=== PATIENT | female | born 1955 | race Caucasian/White ===

== ENCOUNTER 2024-08-10 07:55 | Inpatient (IN) ==
--- NOTE | 2024-07-01 14:04 | PAT Medication Instructions ---
Medication Instructions Date of Service July 01, 2024 Home Medications Medication Instructions Recorded CPAP Supplies #1 ea 05/01/19 CPAP Machine #1 ea 05/05/19 CPAP Supplies #1 ea 05/05/19 compression stockings #3 ea 07/03/19 Medication List: multivitamin with iron 2 tab PO QAM [id number] [Macular Health Formula] 1 dose PO QAM naltrexone 8 mg-bupropion 90 mg tablet,extended release (Contrave) 1 tab PO QAM acetaminophen 500 mg tablet (Tylenol Extra Strength) 1,000 mg PO QAM ascorbic acid (vitamin C) 100 mg tablet (Vitamin C) 0 mg PO QAM cholecalciferol (vitamin D3) 50 mcg (2,000 unit) capsule 2,000 units PO QAM mirabegron 50 mg tablet,extended release 24 hr (Myrbetriq) 50 mg PO QAM omeprazole 20 mg capsule,delayed release 20 mg PO QAM solifenacin 10 mg tablet (Vesicare) 10 mg PO QAM MEDICATION INSTRUCTIONS: STOP taking 2 weeks before surgery [id number] [Macular Health Formula] 1 dose PO QAM DO NOT take the morning of surgery ascorbic acid (vitamin C) 100 mg tablet (Vitamin C) 0 mg PO QAM multivitamin with iron 2 tab PO QAM cholecalciferol (vitamin D3) 50 mcg (2,000 unit) capsule 2,000 units PO QAM mirabegron 50 mg tablet,extended release 24 hr (Myrbetriq) 50 mg PO QAM solifenacin 10 mg tablet (Vesicare) 10 mg PO QAM naltrexone 8 mg-bupropion 90 mg tablet,extended release (Contrave) 1 tab PO QAM Take morning of surgery With a small sip of water, OTHERWISE NOTHING TO EAT OR DRINK AFTER MIDNIGHT: omeprazole 20 mg capsule,delayed release 20 mg PO QAM acetaminophen 500 mg tablet (Tylenol Extra Strength) 1,000 mg PO QAM Other Notes If you have any questions please call us at [phone] or [phone] or [phone] or [phone]
--- NOTE | 2024-07-13 11:28 | Anesthesiology Consultation ---
Date of Service July 13, 2024 Assessment & Plan (1) Encounter for pre-operative examination: Plan - awaiting surgeon ordered medical clearance, CIRO 07/30. - Case discussed in detail with Dr. Esteves who advised echocardiogram does not need updated prior to surgery from anesthesia standpoint, will await upcoming PCP clearance. Chart Review Chart Review: Pending: Refer to Additional Notes / Consult section and Patient seen in Pre Admission Testing Teaching & Discussion Pre-Anesthesia Teaching/Discussion Notes: Instructed NPO after midnight before surgery, except medications with 15 cc of water. Medication instructions provided according to the PAT guidelines. History Surgery Operation Date: 08/10/24 07:45 Proposed Procedures p L3-L4, L4-L5 Decompression and Fusion, with Spinal Cord Monitoring - Morro Don, Height/Weight Height: 5 ft 4 in Weight: 138.7 kg Allergies Allergy/AdvReac Type Severity Reaction Status Date / Time latex Allergy Unknown ITCHING Verified 06/30/24 13:34 angie Allergy Unknown Swelling Verified 06/30/24 13:34 of Lip/Tongue/Throat NSAIDS (Non-Steroidal AdvReac Unknown POST Verified 06/30/24 13:34 Anti-Inflamma GASTRIC BYPASS RESTRICTION metal Allergy Unknown see pt Uncoded 06/30/24 13:34 notes below Medications Home Medications Medication Instructions Recorded Confirmed Last Taken CPAP Supplies #1 05/01/19 01/27/24 Unknown CPAP Machine #1 05/05/19 01/27/24 Unknown CPAP Supplies #1 05/05/19 01/27/24 Unknown compression stockings #3 07/03/19 01/27/24 Unknown multivitamin with iron 2 tab PO QAM 08/02/20 06/30/24 Unknown [id number] 1 dose PO QAM 12/27/23 06/30/24 Unknown [Macular Health Formula] naltrexone 8 mg-bupropion 90 mg 1 tab PO QAM 01/27/24 06/30/24 Unknown tablet,extended release (Contrave) acetaminophen 500 mg tablet 1,000 mg PO QAM 06/30/24 06/30/24 Unknown (Tylenol Extra Strength) ascorbic acid (vitamin C) 100 mg 0 mg PO QAM 06/30/24 06/30/24 Unknown tablet (Vitamin C) cholecalciferol (vitamin D3) 50 2,000 units PO QAM 06/30/24 06/30/24 Unknown mcg (2,000 unit) capsule mirabegron 50 mg tablet,extended 50 mg PO QAM 06/30/24 06/30/24 Unknown release 24 hr (Myrbetriq) omeprazole 20 mg capsule,delayed 20 mg PO QAM 06/30/24 06/30/24 Unknown release solifenacin 10 mg tablet (Vesicare) 10 mg PO QAM 06/30/24 06/30/24 Unknown Past Medical History Medical History (Updated 07/13/24 @ 12:47 by Judith Mehta PA-C) Aortic stenosis hx per [place] PCP 2021 records, no aortic stenosis on 03/2022 echo Arthritis Back problem Dysphagia on occ. GERD (gastroesophageal reflux disease) controlled, stable per pt History of colonic polyps History of COVID-19 unknown date/pt reports yrs ago. History of kidney stones History of malignant neoplasm of skin removed and no problems since. Hyperlipidemia denies Left knee DJD Mass of left lower leg pt not sure /nothing current Overactive bladder Paraesophageal hernia surgeon consult in [place]/no planned sx intervention. Right knee DJD Sleep apnea CPAP=compliant SOB (shortness of breath) on exertion with increased exertion, denies shortness of breath walking up one flight of stairs Stress incontinence Varicose veins of both lower extremities stockings recommended/non compliant. Patient denies h/o stroke, seizures, heart attack, heart failure, DM, HTN, blood clots/DVTs or blood transfusions. Exercise / Class Metabolic Activity II 4-5 Yardwork/Stairs/Walk up hill (denies chest discomfort or shortness of breath with one flight of stairs) Past Family History Family History (Updated 07/13/24 @ 11:33 by Judith Mehta PA-C) Father Lung cancer Cancer Heart problem Diabetes Mother Hypertension COPD (chronic obstructive pulmonary disease) Unknown Overweight Uncle Stroke Brother Congestive heart failure Past Surgical History Surgical History (Updated 07/13/24 @ 11:34 by Judith Mehta PA-C) History of abdominal surgery panniculectomy History of carpal tunnel surgery of left wrist History of carpal tunnel surgery of right wrist History of colonoscopy History of esophagogastroduodenoscopy (EGD) with stretching. History of gastric bypass History of hernia repair 3 hernias found and repaired. Following hernia surgery had choking with lying down, couldn't sit up due to weak abdominal muscles and required rehab stay. History of surgery right hand thumb tendon repair years ago by Dr. Castro Past Anesthesia History No Hx of Anesthesia Complications and Other (mother with post-op confusion) History of PONV No Hx of PONV and No Hx of Motion Sickness Social History Smoking Status: Never smoker Do You Dip or Chew Tobacco: No Hx Alcohol Use: Yes alcohol intake frequency: holidays/special occasions only substance use type: does not use Review of Systems Patient denies chest pain, fever, chills, cough, wheezing, or palpitations. Physical Exam Vital Signs Vitals BP 128/80 P 82 TEMP 97.6 SP02 97% on RA RESP 18 Physical Patient resting comfortably in chair in no acute distress, alert and oriented, responding appropriately throughout visit Full cervical extension range of motion without pain TMD 3.5 finger breadths Mallampati Score 2 Dentition: intact, denies chipped or loose teeth, caps/crowns, implants or bridges Lungs: normal respiratory effort. Good air movement, clear throughout to auscultation, no adventitious breath sounds Cardiac: regular rate and rhythm, 2/6 systolic murmur, no gallops or rubs Carotid arteries: negative bruit bilat Lab Results Anesthesia Preop Results Results Anesthesia Widget: WBC 5.94 K/ul (4.8-10.8) 07/13/24 Hgb 13.3 g/dl (12.0-16.0) 07/13/24 Hct 40.8 % (37.0-47.0) 07/13/24 Plt 287 K/uL (130-400) 07/13/24 Na 139 mmol/L (136-145) 07/13/24 K 4.0 mmol/L (3.5-5.1) 07/13/24 Cl 107 mmol/L (98-107) 07/13/24 CO2 25 mmol/L (21-32) 07/13/24 BUN 21 mg/dl (6-23) 07/13/24 Creat 0.58 mg/dl (0.6-1.2) L 07/13/24 Glucose Level 80 mg/dl (70-99(Fasting)) 07/13/24 PT 10.0 Seconds (9.0-12.0) 07/13/24 PTT 28 Seconds (21-31) 07/13/24 INR 0.9 (0.9-1.1) 07/13/24 Urine Color Yellow 07/13/24 Urine Appearance Clear (Clear) 07/13/24 Urine pH 5.5 (4.5-7.5) 07/13/24 Urine Specific [place] 1.012 (1.000-1.030) 07/13/24 Urine Protein Negative (Negative) 07/13/24 Urine Glucose (UA) Negative (Negative) 07/13/24 Urine Ketones Negative (Negative) 07/13/24 Urine Blood Negative (Negative) 07/13/24 Urine Nitrite Negative (Negative) 07/13/24 Urine Bilirubin Negative (Negative) 07/13/24 Urine Urobilinogen Negative (Negative) 07/13/24 Urine Leukocyte Esterase Negative (Negative) 07/13/24 Blood Type O Positive 07/13/24 Antibody Screen NEGATIVE 07/13/24 Testing Electrocardiogram Date: 07/13/24 NSR, rate 73 bpm RBBB Chest X-Ray Date: 07/13/24 No acute cardiopulmonary findings. Echocardiogram Date: 03/27/22 EF 60-65% No LV regional wall motion abnormalities Moderate cLVH Sclerotic aortic valve without significant stenosis Grade I diastolic dysfunction
[2024-08-10] MEDS ORDERED: ATROPINE SULFATE 0.1 MG/ML 10ML SYR IV PRN (08:24)
[2024-08-10] MEDS ORDERED: PROMETHAZINE HCL 6.25 MG in SODIUM CHLORIDE 0.9% 50 ML IV PRN (08:24)
[2024-08-10] MEDS ORDERED: ONDANSETRON INJ 2 MG/ML 2 ML VIAL IV PRN ×2 (08:24→14:58)
[2024-08-10] MEDS: GABAPENTIN 300 MG CAP PO SCH (08:41)
[2024-08-10] MEDS: ACETAMINOPHEN 500 MG TAB PO SCH (08:41)
[2024-08-10] MEDS: LR 60ML/HR IV SCH (08:41)
[2024-08-10] MEDS: LR 15ML/HR IV SCH (08:42)
--- NOTE | 2024-08-10 08:46 | History & Physical Bridge Note ---
Date of Service August 10, 2024 History & Physical Bridge Note I have examined the patient, reviewed the History & Physical and in the interval since the performance of the History & Physical I have noted the following changes of clinical significance: no changes noted
--- NOTE | 2024-08-10 08:47 | History & Physical Report ---
Date of Service August 10, 2024 Assessment & Plan (1) Neurogenic claudication due to lumbar spinal stenosis: Plan: Decompression and fusion L3-L4 L4-L5 History of Present Illness Chief Complaint: Back and bilateral leg pain Primary Care Provider: Hernandez Collazo DO This is a 69-year-old female presents with chronic persistent back and bilateral leg pain after failing course of nonoperative care is here for surgical invention. Allergies Allergy/AdvReac Type Severity Reaction Status Date / Time latex Allergy Unknown ITCHING Verified 08/10/24 08:26 angie Allergy Unknown Swelling Verified 08/10/24 08:26 of Lip/Tongue/Throat NSAIDS (Non-Steroidal AdvReac Unknown POST Verified 08/10/24 08:26 Anti-Inflamma GASTRIC BYPASS RESTRICTION metal Allergy Mild see pt Uncoded 08/10/24 08:26 notes below Home Medications Medication Instructions Recorded Confirmed Type CPAP Supplies #1 05/01/19 08/10/24 Rx CPAP Machine #1 ea 05/05/19 08/10/24 Rx CPAP Supplies #1 ea 05/05/19 08/10/24 Rx compression stockings #3 ea 07/03/19 08/10/24 Rx multivitamin with iron 2 tab PO QAM 08/02/20 08/10/24 History [id number] 1 dose PO QAM 12/27/23 08/10/24 History [Macular Health Formula] naltrexone 8 mg-bupropion 90 mg 1 tab PO QAM 01/27/24 08/10/24 History tablet,extended release (Contrave) acetaminophen 500 mg tablet 1,000 mg PO QAM 06/30/24 08/10/24 History (Tylenol Extra Strength) ascorbic acid (vitamin C) 100 mg 0 mg PO QAM 06/30/24 08/10/24 History tablet (Vitamin C) cholecalciferol (vitamin D3) 50 2,000 units PO QAM 06/30/24 08/10/24 History mcg (2,000 unit) capsule mirabegron 50 mg tablet,extended 50 mg PO QAM 06/30/24 08/10/24 History release 24 hr (Myrbetriq) omeprazole 20 mg capsule,delayed 20 mg PO QAM 06/30/24 08/10/24 History release solifenacin 10 mg tablet (Vesicare) 10 mg PO QAM 06/30/24 08/10/24 History bupropion HCl 150 mg tablet,12 hr 150 mg PO QAM #30 ea 07/20/24 08/10/24 Rx sustained-release naltrexone 50 mg tablet 25 mg (1/2 x 50 mg) PO DAILY #30 07/20/24 08/10/24 Rx tabs Past Med/Surg History Problem List (Updated 08/10/24 @ 08:47 by Morro Don, DO) Neurogenic claudication due to lumbar spinal stenosis Encounter for pre-operative examination Vitamin D deficiency Right knee DJD Left knee DJD Mixed incontinence urge and stress Nausea Runny nose Headache Right foot pain Dysphagia Varicose veins of both legs with edema Breast pain in female Body mass index (BMI) of 50.0 to 59.9 in adult (Chronic) CTS (carpal tunnel syndrome) (Chronic) Hyperlipidemia (Chronic) Incontinence (Chronic) Morbid obesity (Chronic) Need for immunization against influenza (Chronic) RITA on CPAP (Chronic) Screening mammogram, encounter for (Chronic) Shortness of breath on exertion (Chronic) Status post gastric bypass for obesity (Chronic) Stress incontinence in female (Chronic) Urinary urgency (Chronic) Vitamin B12 deficiency (Chronic) Medical History Left knee DJD Right knee DJD Aortic stenosis History of COVID-19 Back problem Arthritis History of colonic polyps History of malignant neoplasm of skin History of kidney stones Mass of left lower leg Varicose veins of both lower extremities Hyperlipidemia Stress incontinence Overactive bladder Dysphagia Paraesophageal hernia SOB (shortness of breath) on exertion GERD (gastroesophageal reflux disease) Sleep apnea Surgical History History of surgery History of abdominal surgery History of esophagogastroduodenoscopy (EGD) History of colonoscopy History of carpal tunnel surgery of right wrist History of carpal tunnel surgery of left wrist History of gastric bypass History of hernia repair Family History (Updated 07/13/24 @ 11:33 by Judith Mehta PA-C) Father Lung cancer Cancer Heart problem Diabetes Mother Hypertension COPD (chronic obstructive pulmonary disease) Unknown Overweight Uncle Stroke Brother Congestive heart failure Social History Smoking Status: Never smoker Do You Dip or Chew Tobacco: No; Hx Alcohol Use: Yes Preferred Language: Lao Communication Ability: Effective Database Programmer Required: No Beliefs That Will Affect Care: None marital status: Single Current Living Situation: Alone current occupational status: retired Feels Safe at Home: Yes Assistive Devices: Cane, CPAP and Glasses Physical Exam Physical Exam: Patient is alert and oriented Heart regular rhythm Lungs clear Results & Data Results & Data Vital Signs (Past 12 Hours) Vital Signs Temp Pulse Resp BP Pulse Ox O2 Del Method 08/10/24 08:33 36.8 C 83 14 135/80 96 Room Air
[2024-08-10] MEDS ORDERED: LIDOCAINE 2% 2 ML VIAL/AMP(20MG/ML) INFIL ONE (09:06)
[2024-08-10] MEDS ORDERED: ONDANSETRON INJ 2 MG/ML 2 ML VIAL ONE (09:06)
[2024-08-10] MEDS ORDERED: fentaNYL citrate PF 100 MCG/2 ML VIAL ONE (09:06)
[2024-08-10] MEDS ORDERED: PROPOFOL IV EMULSION 10 MG/ML 20 ML VIAL IV ONE (09:06)
[2024-08-10] MEDS ORDERED: MIDAZOLAM HCL 1 MG/ML 2ML VIAL ONE (09:06)
[2024-08-10] MEDS ORDERED: DEXAMETHASONE SOD INJ 4 MG/ML VIAL ONE (09:06)
[2024-08-10] MEDS ORDERED: HYDROmorphone INJ 2 MG/ML SYR/VIAL ONE (09:07)
[2024-08-10] MEDS: ceFAZolin 3000MG 3,000 MG/72.5 ML BAG IV SCH (09:42)
[2024-08-10] MEDS: BUPIVACAINE/EPINEPHRINE 0.25% 1:200,000 30 ML VIAL ONE (09:45)
[2024-08-10] MEDS ORDERED: ROCURONIUM BROMIDE 10 MG/ML 5 ML VIAL IV ONE (09:51)
[2024-08-10] MEDS ORDERED: ALBUMIN HUMAN 5% 12.5 GM/250 ML VIAL IV ONE (10:36)
[2024-08-10] MEDS ORDERED: diphenhydrAMINE 50 MG/ML VIAL ONE (11:13)
[2024-08-10] MEDS ORDERED: SUGAMMADEX SODIUM 200 MG/2 ML VIAL IV ONE (11:16)
[2024-08-10] MEDS ORDERED: GLYCOPYRROLATE 0.2 MG/ML VIAL ONE (11:28)
[2024-08-10] MEDS: SURGICEL ABSORB HEMOSTAT 2IN X 14IN TOP ONE (11:33)
[2024-08-10] MEDS: FLOSEAL HEMOSTATIC MATRIX 10ML TOP ONE (11:38)
[2024-08-10] MEDS: ceFAZolin 330 MG/ML 1 GM VIAL ONE (11:38)
--- NOTE | 2024-08-10 11:54 | Operative Report ---
Post Operative Report Pre & Post Diagnosis Operation Date: 08/10/24 09:05 Pre-Op Diagnosis: Neurogenic claudication due to lumbar spinal stenosis Spondylolisthesis L4-L5 Morbid obesity Post-Op Diagnosis: Same I identified the patient and participated in the time-out.: Yes Procedure Operation Date: 08/10/24 09:05 Actual Procedures #1 lumbar decompression bilateral medial facetectomies and foraminotomies L2-L3, L3-L4 and L4-5. #2 posterior spinal fusion L3-L5. #3 placement posterior instrumentation L3-L5. #4 interbody fusion L3-L4 L4-L5 #5 placement of Spira 13 x 26 mm x 2 at L3-L4 and a 14 x 26 mm x 2 at L4-L5. #6 placement locally harvested morselized autograft posterior gutters. #7 placement infuse collagen sponge combined with Koros in the posterior lateral gutters and os design in the interbody space. #9 placement of versa wrap over the exposed dura. Surgeon Morro Don, DO Geriatric Nurse Practitioner Shellie Bland Estimated Blood Loss 1,050 Findings See Below The patient is 5 foot 4 weighing over 139 kg with a BMI in excess of 52. This combined with an EBL of greater than 1000 cc created significant technical difficulty with the positioning exposure and the procedure itself. This had at least 50% increased operative time. And recommending a modifier 22. Specimens None Indications This is a 69-year-old female presents publish diagnosis of failing course of nonoperative care is here for surgical invention. Description of Procedure Patient was met with identified informed consent obtained. Patient was then taken to the operative suite underwent intubation and placed in the prone position on the Stephen table atop the Munir frame. All bony promises well- padded eyes inspected to ensure no external pressure placed upon them. This point the lumbar spine was prepped and draped in normal sterile fashion. Sharp dissection with the assistance of Bovie cautery was formed down to and exposing the lamina transverse processes of L3-L4-L5. From caudal cephalad fashion complete laminectomy of L4 was performed including bilateral medial facetectomies and foraminotomies addressing severe spinal stenosis. This was followed by complete laminectomy of L3 again including bilateral medial facetectomies and foraminotomies addressing severe spinal stenosis and lastly partial laminectomy of L2 with bilateral medial facetectomies to address also articular disease. Pedicle screws then placed in L3-L4-L5 bilaterally with assistance of fluoroscopy and appropriate size evette placed. By way of transforaminal approach on the right a discectomy of L4-L5 was performed endplates guarded to subcortical and bone and a 14 x 26 mm Spira cage filled with os designed tapped into position. I then proceeded to the left transforaminal region at L4-L5. Again discectomy performed endplates guarded to subcortical bleeding bone and a second 14 x 26 mm spiral cage with Oxyzyme tapped in position. Then proceeded to L3-L4 and by way of a transforaminal approach on the left a discectomy performed endplates guarded to subcortical bleeding bone and a 13 x 26 mm spiral cage filled with os design tapped in position. Lastly I approached L3-L4 foramen on the right completed discectomy. Endplates guarded to subcortical mean bone and a again a 13 x 26 mm Spira cage filled with Oxyzyme tapped in position. The rods then compressed locked into final position bilaterally. The transverse processes of L3 L4-5 burred to subcortical bleeding bone. Infuse collagen sponge combined with Koros and local autograft placed in the posterior lateral gutters. Versa wrap placed over the exposed dura. 15 round ROSE MARIE drain inserted. The incision was then closed with 1 Vicryl the fascia 2-0 Vicryl subcutaneously and 4 Monocryl for final closure. Steri-Strips sterile dressing placed. Patient waken taken the PACU stable condition. Please note spinal cord monitoring was utilized at the procedure no changes noted. Lastly Shellie Bland was present out the entire procedure involved in patient positioning complex portion of the surgery and final closure. Im ordering 20 grams of Triple Pierson Collagen Powder (GoTable [id number]) to treat an incision wound that was caused by a spine procedure. The incision is approximately 2 cm(W) x 4 cm(L) into the joint (D) in size and is a full thickness wound. Triple Pierson collagen comes in 1 gram packets so 20 packets were ordered. Given the size of the wound, with light to moderate exudate I chose to order a 20 day supply. The patient will be provided instructions for proper application of the collagen wound kit. The patient will be asked to apply the collagen powder daily and then cover it with sterile dressings dispensed. Collagen was selected as I expect the collagen to attract monocytes and fibroblasts, act as a sacrificial substrate for MMPs, and ultimately proved a matrix for tissue and vessel growth. The collagen will act as a primary dressing in this scenario. It is medically necessary for proper healing of these wounds to improve bioavailability and contact with each wound surface, this is also to help prevent infection of wounds and promote healing ultimately leading to a better healing outcome and limit the risk of infection. I attest to the content of the Intraoperative Record and any orders documented therein. Any exceptions are noted below.
--- NOTE | 2024-08-10 12:00 | Fluoroscopy Report ---
FL lumbar spine 2-3V CLINICAL HISTORY: L3-L5 DECOMPRESSION AND FUSION COMPARISON STUDY: MRI 04/27/2024 FLUOROSCOPY TIME: 32.3 seconds FLUOROSCOPY IMAGES: 2 EXPOSURE DOSE: 61.6 mGy FINDINGS: Posterior interbody evette and screw fusion and discectomy noted at what is labeled the L3-L5 levels. Visualized hardware appears intact. No unexpected opaque foreign bodies identified. IMPRESSION: Fluoroscopic assistance as above. ACT 112: Negative or not required by law. Electronically signed by: Cedrick Martinez M.D. 08/10/2024 11:59 AM
[2024-08-10] MEDS: HYDROmorphone INJ 1 MG/ML SYRINGE IV PRN (12:15)
[2024-08-10] MEDS: HYDROmorphone INJ 1 MG/ML SYRINGE IV STA (13:00)
--- NOTE | 2024-08-10 14:10 | Anesthesiology Progress Note ---
Date of Service August 10, 2024 Anesthesia Post Procedure Vital Signs Vital Signs: Temp Pulse Pulse Resp BP Pulse Ox O2 Del Method 08/10/24 13:45 36.5 C 77 17 135/78 98 Room Air 08/10/24 13:35 36.5 C 70 15 142/74 H 97 Room Air 08/10/24 13:25 36.5 C 70 14 158/84 H 95 Room Air 08/10/24 13:10 36.5 C 63 10 L 174/85 H 100 Nasal Cannula 08/10/24 13:00 36.5 C 72 19 147/83 H 100 Oxymask 08/10/24 12:50 74 15 145/86 H 96 Oxymask 08/10/24 12:40 69 17 186/95 H 100 Oxymask 08/10/24 12:30 76 11 L 127/103 H 100 Oxymask 08/10/24 12:20 75 17 149/91 H 100 Oxymask 08/10/24 12:09 36.1 C L 84 18 143/74 H 98 Oxymask 08/10/24 08:33 36.8 C 83 14 135/80 96 Room Air O2 Flow Rate 08/10/24 13:45 2 08/10/24 13:35 2 08/10/24 13:25 2 08/10/24 13:10 2 08/10/24 13:00 2 08/10/24 12:50 3 08/10/24 12:40 3 08/10/24 12:30 3 08/10/24 12:20 4 08/10/24 12:09 6 08/10/24 08:33 Pain Intensity Back: Pain Intensity: 5 Transfer of Care Handoff Completed per policy Notes Mental Status: alert / awake / arousable Patient Amnestic to Procedure: Yes Nausea / Vomiting: adequately controlled Pain: adequately controlled Airway Patency, RR, SpO2: stable & adequate BP & HR: stable & adequate Hydration State: stable & adequate Anesthetic Complications: no major complications apparent
[2024-08-10] MEDS ORDERED: LORazepam 2 MG/1 ML VIAL IV PRN (14:58)
[2024-08-10] MEDS ORDERED: hydrOXYzine HCl 25 MG TAB PO PRN (14:58)
[2024-08-10] MEDS ORDERED: FAMOTIDINE 20 MG TAB PO PRN (14:58)
[2024-08-10] MEDS ORDERED: SOD PHOSPHATE/SOD BIPHOSPHATE ENEMA 132 ML BTL PR PRN (14:58)
[2024-08-10] MEDS ORDERED: NON-FORMULARY MEDICATION (Cpap Supplies misc) SCH ×2 (14:58)
[2024-08-10] MEDS ORDERED: METOCLOPRAMIDE HCL INJ 5 MG/ML 2 ML VIAL IV PRN (14:58)
[2024-08-10] MEDS ORDERED: DO NOT ADMINISTER PNEUMOCOCCAL VACCINE PRN (14:58)
[2024-08-10] MEDS ORDERED: PROMETHAZINE 12.5 MG/50.5 ML BAG IV PRN (14:58)
[2024-08-10] MEDS ORDERED: NALOXONE HCL 0.4 MG/1 ML VIAL/CARP IV PRN (14:58)
[2024-08-10] MEDS ORDERED: ALUMINUM/MAGNESIUM SUSP 30 ML UDC PO PRN (14:58)
[2024-08-10] MEDS ORDERED: traMADol HCL 50 MG TABLET PO PRN (14:58)
[2024-08-10] MEDS ORDERED: bisacodyL 10 MG SUPP PR PRN (14:58)
[2024-08-10] MEDS ORDERED: NON-FORMULARY MEDICATION (Cpap Machine misc) SCH (14:58)
[2024-08-10] MEDS ORDERED: ONDANSETRON 4 MG OD TAB PO PRN (14:58)
[2024-08-10] MEDS ORDERED: HYDROmorphone INJ 0.5 MG/0.5 ML SYR IV PRN (14:58)
[2024-08-10] MEDS ORDERED: ACETAMINOPHEN 1,000 MG/100 ML VIAL IV PRN (14:58)
[2024-08-10] MEDS ORDERED: diphenhydrAMINE Capsule 25 MG CAP PO PRN (14:58)
[2024-08-10] MEDS ORDERED: DO NOT ADMINISTER FLU VACCINE PRN (14:58)
[2024-08-10] MEDS: LORazepam 0.5 MG TAB PO PRN (15:35)
--- NOTE | 2024-08-10 16:58 | Communication Note ---
Date of Service: August 10, 2024 Attending addendum: The patient was seen and examined in medical floor she is status post L3-L4 and L4-L5 decompression and fusion on 08/10/2024 She has been feeling much better following the surgery and denies any significant pain On examination Lying in bed without any apparent distress Afebrile and hemodynamically stable Chestclear to auscultate bilaterally HeartS1-S2, regular Abdomenbenign Extremitiesno edema CNSalert, awake and oriented x 3. No focal sensory or motor deficit appreciated Her preop admission labs, EKG and imaging studies reviewed Status post lumbar back surgery and remains medically stable Will check her labs tomorrow Agree with assessment and plan as outlined above by Ángel Steven PA-C and take the full responsibility of the care Dr Jorge Tang
--- NOTE | 2024-08-10 17:38 | Hospitalist Consultation ---
Date of Consultation August 10, 2024 History of Present Illness Reason for Consultation: Post-Operative Medical Management Requesting Physician: Morro Don DO Attending Physician: Morro Don DO History of Present Illness Angelika Acosta is a 69y/o F with PMHx significant for Allergies Allergy/AdvReac Type Severity Reaction Status Date / Time latex Allergy Unknown ITCHING Verified 08/10/24 08:26 angie Allergy Unknown Swelling Verified 08/10/24 08:26 of Lip/Tongue/Throat NSAIDS (Non-Steroidal AdvReac Unknown POST Verified 08/10/24 08:26 Anti-Inflamma GASTRIC BYPASS RESTRICTION metal Allergy Mild see pt Uncoded 08/10/24 08:26 notes below Home Medications Medication Instructions Recorded Confirmed Type CPAP Supplies #1 ea 05/01/19 08/10/24 Rx CPAP Machine #1 ea 05/05/19 08/10/24 Rx CPAP Supplies #1 ea 05/05/19 08/10/24 Rx compression stockings #3 ea 07/03/19 08/10/24 Rx multivitamin with iron 2 tab PO QAM 08/02/20 08/10/24 History [id number] 1 dose PO QAM 12/27/23 08/10/24 History [Macular Health Formula] naltrexone 8 mg-bupropion 90 mg 1 tab PO QAM 01/27/24 08/10/24 History tablet,extended release (Contrave) acetaminophen 500 mg tablet 1,000 mg PO QAM 06/30/24 08/10/24 History (Tylenol Extra Strength) ascorbic acid (vitamin C) 100 mg 0 mg PO QAM 06/30/24 08/10/24 History tablet (Vitamin C) cholecalciferol (vitamin D3) 50 2,000 units PO QAM 06/30/24 08/10/24 History mcg (2,000 unit) capsule mirabegron 50 mg tablet,extended 50 mg PO QAM 06/30/24 08/10/24 History release 24 hr (Myrbetriq) omeprazole 20 mg capsule,delayed 20 mg PO QAM 06/30/24 08/10/24 History release solifenacin 10 mg tablet (Vesicare) 10 mg PO QAM 06/30/24 08/10/24 History bupropion HCl 150 mg tablet,12 hr 150 mg PO QAM #30 ea 07/20/24 08/10/24 Rx sustained-release naltrexone 50 mg tablet 25 mg (1/2 x 50 mg) PO DAILY #30 07/20/24 08/10/24 Rx tabs oxycodone 5 mg tablet 5 mg PO Q6H PRN pain #30 tabs 08/10/24 Rx tramadol 50 mg tablet 50 mg PO Q6H PRN pain, moderate 08/10/24 Rx #30 tabs Patient History Medical History Left knee DJD Right knee DJD Aortic stenosis History of COVID-19 Back problem Arthritis History of colonic polyps History of malignant neoplasm of skin History of kidney stones Mass of left lower leg Varicose veins of both lower extremities Hyperlipidemia Stress incontinence Overactive bladder Dysphagia Paraesophageal hernia SOB (shortness of breath) on exertion GERD (gastroesophageal reflux disease) Sleep apnea Surgical History History of surgery History of abdominal surgery History of esophagogastroduodenoscopy (EGD) History of colonoscopy History of carpal tunnel surgery of right wrist History of carpal tunnel surgery of left wrist History of gastric bypass History of hernia repair Family History (Updated 07/13/24 @ 11:33 by Judith Mehta PA-C) Father Lung cancer Cancer Heart problem Diabetes Mother Hypertension COPD (chronic obstructive pulmonary disease) Unknown Overweight Uncle Stroke Brother Congestive heart failure Social History Smoking Status: Never smoker Do You Dip or Chew Tobacco: No; Hx Alcohol Use: Yes Preferred Language: [place] Communication Ability: Effective Director Of Bands Required: No Beliefs That Will Affect Care: None marital status: Single Current Living Situation: Alone current occupational status: retired Feels Safe at Home: Yes Assistive Devices: Cane, CPAP and Glasses Results & Data Results & Data Vital Signs (Past 12 Hours) Vital Signs Temp Pulse Pulse Resp BP Pulse Ox O2 Del Method 08/10/24 16:49 36.7 C 98 H 18 144/77 H 99 Nasal Cannula 08/10/24 15:46 36.6 C 90 18 153/86 H 100 Nasal Cannula 08/10/24 15:17 36.8 C 82 18 167/90 H 99 Nasal Cannula 08/10/24 15:00 36.4 C L 85 16 146/79 H 98 Nasal Cannula 08/10/24 14:15 78 16 154/85 H 97 Room Air 08/10/24 13:45 36.5 C 77 17 135/78 98 Room Air 08/10/24 13:35 36.5 C 70 15 142/74 H 97 Room Air 08/10/24 13:25 36.5 C 70 14 158/84 H 95 Room Air 08/10/24 13:10 36.5 C 63 10 L 174/85 H 100 Nasal Cannula 08/10/24 13:00 36.5 C 72 19 147/83 H 100 Oxymask 08/10/24 12:50 74 15 145/86 H 96 Oxymask 08/10/24 12:40 69 17 186/95 H 100 Oxymask 08/10/24 12:30 76 11 L 127/103 H 100 Oxymask 08/10/24 12:20 75 17 149/91 H 100 Oxymask 08/10/24 12:09 36.1 C L 84 18 143/74 H 98 Oxymask 08/10/24 08:33 36.8 C 83 14 135/80 96 Room Air O2 Flow Rate 08/10/24 16:49 08/10/24 15:46 08/10/24 15:17 08/10/24 15:00 2 08/10/24 14:15 2 08/10/24 13:45 2 08/10/24 13:35 2 08/10/24 13:25 2 08/10/24 13:10 2 08/10/24 13:00 2 08/10/24 12:50 3 08/10/24 12:40 3 08/10/24 12:30 3 08/10/24 12:20 4 08/10/24 12:09 6 08/10/24 08:33
[2024-08-10] MEDS: ceFAZolin 2000MG 2,000 MG/15 ML SYR IV SCH (18:05)
[2024-08-10] MEDS: DOCUSATE SODIUM/SENNA 50/8.6MG TAB PO SCH (20:33)
[2024-08-11] MEDS: HYDROmorphone INJ 1 MG/ML SYRINGE IV PRN (04:20)
[2024-08-11] MEDS: POLYETHYLENE (MIRALAX) 17 GM PACK PO SCH (05:43)
[2024-08-11 07:08] LABS: BUN Creatinine Ratio 17.4 (10-20); Calcium 8.4 mg/dl (8.6-10.3); Creatinine Clr Calc Pharmacy 110.5 ml/min; Magnesium 1.8 mg/dl (1.7-2.4); Potassium 3.7 mmol/L (3.5-5.1)
[2024-08-11 07:10] LABS: Basophils # (auto) 0.03 K/uL (0.00-0.20); Basophils % (auto) 0.3 %; Eosinophils # (auto) 0.02 K/uL (0.00-0.50); Eosinophils % (auto) 0.2 %; Hematocrit (blood only) 31.3 % (37.0-47.0); Hemoglobin 10.3 g/dl (12.0-16.0); Immature Granulocytes # (auto) 0.05 K/uL (0.01-0.20); Immature Granulocytes % (auto) 0.5 %; Lymphocytes # (auto) 1.71 K/uL (1.20-3.40); Lymphocytes % (auto) 15.5 %; Mean Corpuscular Hemoglobin 31.1 pg (25.0-34.0); Mean Corpuscular Hgb Conc 32.9 g/dL (32.0-36.0); Mean Corpuscular Volume 94.6 fL (80.0-100.0); Mean Platelet Volume 9.7 fL (9.4-12.4); Monocytes # (auto) 0.87 K/uL (0.11-0.59); Monocytes % (auto) 7.9 %; Neutrophils # (auto) 8.32 K/uL (1.40-6.50); Neutrophils % (auto) 75.6 %; Platelet Count 273 K/uL (130-400); RDW Coefficient of Variation 12.9 % (11.5-14.5); RDW Standard Deviation 44.6 fL (36.4-46.3); Red Blood Count 3.31 M/uL (4.20-5.40)
[2024-08-11] MEDS: buPROPion SR 150 MG TABCR PO SCH (08:22)
[2024-08-11] MEDS: dexAMETHasone 6 MG in SYRINGE 0 ML IV SCH (08:22)
[2024-08-11] MEDS: OXYBUTYNIN CHLORIDE XL 5 MG TABCR PO SCH (08:22)
[2024-08-11] MEDS: CEROVITE ADV FORMULA TAB PO SCH (08:22)
[2024-08-11] MEDS: CHOLECALCIFEROL 25 MCG (1000 UNITS) TAB PO SCH (08:22)
[2024-08-11] MEDS: VIBEGRON 75 MG TAB PO SCH (08:23)
[2024-08-11] MEDS: PANTOprazole 40 MG TAB PO SCH (08:23)
[2024-08-11] MEDS: oxyCODONE HCL IR 5 MG TAB (IMMEDIATE RELEASE) PO PRN (08:26)
[2024-08-11] MEDS ORDERED: NALTREXONE HCL 50 MG TAB PO SCH (09:00)
[2024-08-11] MEDS ORDERED: NON-FORMULARY MEDICATION (Naltrexone-Bupropion [Contrave] 8-90 mg tablet extended release) PO SCH (09:00)
--- NOTE | 2024-08-11 09:17 | Orthopedic Progress Note ---
Date of Service August 11, 2024 Assessment & Plan (1) Neurogenic claudication due to lumbar spinal stenosis: Plan: At this time initiate physical therapy monitor ROSE MARIE output hopefully discharge in the next few days. Admission and Anticipated Discharge Date Admission Date: August 10, 2024 Subjective Patient's back pain is controlled leg pain improved Physical Exam Physical Exam: Patient is currently in bed. She is comfortable. Distracted testing. Results & Data Vital Signs (Past 12 Hours) Vital Signs Temp Pulse Pulse Resp BP Pulse Ox O2 Del Method 08/11/24 07:32 37.6 C H 96 H 18 112/63 94 Room Air 08/11/24 04:01 37.6 C H 102 H 20 94/58 L 95 Room Air 08/11/24 02:46 97 H 19 96 08/11/24 00:01 93 H 17 96 08/10/24 23:53 37.4 C 97 H 18 97/66 L 95 Room Air Queries Orthopedic Spine Obesity: Yes
--- NOTE | 2024-08-11 09:25 | Hospitalist Consultation ---
Date of Consultation August 11, 2024 Assessment & Plan (1) Neurogenic claudication due to lumbar spinal stenosis: s/p #1 lumbar decompression bilateral medial facetectomies and foraminotomies L2-L3, L3-L4 and L4-5. #2 posterior spinal fusion L3-L5. #3 placement posterior instrumentation L3-L5. #4 interbody fusion L3-L4 L4-L5 #5 placement of Spira 13 x 26 mm x 2 at L3-L4 and a 14 x 26 mm x 2 at L4-L5. #6 placement locally harvested morselized autograft posterior gutters. #7 placement infuse collagen sponge combined with Koros in the posterior lateral gutters and os design in the interbody space. #9 placement of versa wrap over the exposed dura. WBC elevation 11k. Suspect elevation from steroids/stress from surgery. Did have low grade temp 37.6C but suspect atelectasis/incentive spirometry ordered/encouraged. -no other symptoms but does still have keen in place and will need to monitor. Remains on Dexamethasone 6mg IV daily per primary service Hgb 13.3--> 10.3, acute blood loss anemia from surgery suspected with EBL 1050cc and ROSE MARIE output 300cc thus far as well as aspect of dilution from IVF. VSS with BP 112/63, HR 96bpm * Per OP report, "ordering 20 grams of [place] Collagen Powder ([facility] A6010) to treat an incision wound that was caused by a spine procedure. The incision is approximately 2 cm(W) x 4 cm(L) into the joint (D) in size and is a full thickness wound. [place] collagen comes in 1 gram packets so 20 packets were ordered. Given the size of the wound, with light to moderate exudate I chose to order a 20 day supply. The patient will be provided instructions for proper application of the collagen wound kit. The patient will be asked to apply the collagen powder daily and then cover it with sterile dressings dispensed" Did have some lightheaded/dizziness and suspect from blood loss. No CP/SOB reported and will monitor. Can check orthostatic VS for completeness Pain control, bowel regimen, PT/OT, DVT prophylaxis per primary service CPAP ordered HS, encouraged to bring home unit if able as well as combo naltrexone-bupropion per her weight management provider Monitor exam/labs in AM (2) RITA on CPAP: CPAP HS (3) Urinary urgency: noted,on Myrbetriq and Vesicare at baseline keen in place at present. remains on gemtessa/ditropan while inpatient. monitor UOP/issues once removed (4) Stress incontinence in female: as above (5) CTS (carpal tunnel syndrome): noted, tsh w/ am labs Plan Thank you for allowing hospitalist service to participate in the care of Ms Acosta. Hospitalist service will follow along in AM. Please call with any questions/concerns. Supervising Physician Co-Signing Physician Notes The patient was seen by me. The chart was reviewed. Case discussed with ROXANN Spencer. Agree with assessment and plan History of Present Illness Reason for Consultation: medical management Requesting Physician: Dr Don Attending Physician: Morro Don DO History of Present Illness 69yo presented for L3-L5 decompression and fusion with Dr Don on 08/10. EBL 1050cc, does have collagen matrix for wound bed. ROSE MARIE output 300cc thus far. Seen this morning and working with therapy, did well but some lightheaded/dizziness but improved when getting her bearings and to alert if recurs/will monitor. Ordered CPAP last evening but loud machine/unable to tolerate and uses nasal pillows at home. Didn't know she could bring her own but if someone able to bring can order to use. Also has been on combo naltrexone-bupropion from weight loss provider but didn't know could take -- if able to bring can resume. Worked with therapy, keen still in place. Hx urinary incontinence/stress/urgency as well as prolapse and on medications at baseline. Discussed can utilize purewick. Nursing to remove this evening/will monitor. Decent appetite. No CP/SOB. No nausea/vomiting. No fever/chills reported. Is her first back surgery, discussed tomorrow may be more painful but pain medications available as needed. Questions/concerns addressed at this time. Allergies Allergy/AdvReac Type Severity Reaction Status Date / Time latex Allergy Unknown ITCHING Verified 08/10/24 08:26 angie Allergy Unknown Swelling Verified 08/10/24 08:26 of Lip/Tongue/Throat NSAIDS (Non-Steroidal AdvReac Unknown POST Verified 08/10/24 08:26 Anti-Inflamma GASTRIC BYPASS RESTRICTION metal Allergy Mild see pt Uncoded 08/10/24 08:26 notes below Home Medications Medication Instructions Recorded Confirmed Type CPAP Supplies #1 ea 05/01/19 08/10/24 Rx CPAP Machine #1 ea 05/05/19 08/10/24 Rx CPAP Supplies #1 ea 05/05/19 08/10/24 Rx compression stockings #3 ea 07/03/19 08/10/24 Rx multivitamin with iron 2 tab PO QAM 08/02/20 08/10/24 History [id number] 1 dose PO QAM 12/27/23 08/10/24 History [Macular Health Formula] naltrexone 8 mg-bupropion 90 mg 1 tab PO QAM 01/27/24 08/10/24 History tablet,extended release (Contrave) acetaminophen 500 mg tablet 1,000 mg PO QAM 06/30/24 08/10/24 History (Tylenol Extra Strength) ascorbic acid (vitamin C) 100 mg 0 mg PO QAM 06/30/24 08/10/24 History tablet (Vitamin C) cholecalciferol (vitamin D3) 50 2,000 units PO QAM 06/30/24 08/10/24 History mcg (2,000 unit) capsule mirabegron 50 mg tablet,extended 50 mg PO QAM 06/30/24 08/10/24 History release 24 hr (Myrbetriq) omeprazole 20 mg capsule,delayed 20 mg PO QAM 06/30/24 08/10/24 History release solifenacin 10 mg tablet (Vesicare) 10 mg PO QAM 06/30/24 08/10/24 History bupropion HCl 150 mg tablet,12 hr 150 mg PO QAM #30 ea 07/20/24 08/10/24 Rx sustained-release naltrexone 50 mg tablet 25 mg (1/2 x 50 mg) PO DAILY #30 07/20/24 08/10/24 Rx tabs oxycodone 5 mg tablet 5 mg PO Q6H PRN pain #30 tabs 08/10/24 Rx tramadol 50 mg tablet 50 mg PO Q6H PRN pain, moderate 08/10/24 Rx #30 tabs Patient History Medical History Left knee DJD Right knee DJD Aortic stenosis hx per [place] PCP 2022 records, no aortic stenosis on 03/2022 echo History of COVID-19 unknown date/pt reports yrs ago. Back problem Arthritis History of colonic polyps History of malignant neoplasm of skin removed and no problems since. History of kidney stones Mass of left lower leg pt not sure /nothing current Varicose veins of both lower extremities stockings recommended/non compliant. Hyperlipidemia denies Stress incontinence Overactive bladder Dysphagia on occ. Paraesophageal hernia surgeon consult in [place]/no planned sx intervention. SOB (shortness of breath) on exertion with increased exertion, denies shortness of breath walking up one flight of stairs GERD (gastroesophageal reflux disease) controlled, stable per pt Sleep apnea CPAP=compliant Surgical History History of surgery right hand thumb tendon repair years ago by Dr. Castro History of abdominal surgery panniculectomy History of esophagogastroduodenoscopy (EGD) with stretching. History of colonoscopy History of carpal tunnel surgery of right wrist History of carpal tunnel surgery of left wrist History of gastric bypass History of hernia repair 3 hernias found and repaired. Following hernia surgery had choking with lying down, couldn't sit up due to weak abdominal muscles and required rehab stay. Family History Father Lung cancer Cancer Heart problem Diabetes Mother Hypertension COPD (chronic obstructive pulmonary disease) Unknown Overweight Uncle Stroke Brother Congestive heart failure Social History Smoking Status: Never smoker Do You Dip or Chew Tobacco: No; Hx Alcohol Use: Yes Preferred Language: [place]uvian Communication Ability: Effective Order Editor Required: No Beliefs That Will Affect Care: None marital status: Single Current Living Situation: Alone current occupational status: retired Feels Safe at Home: Yes Assistive Devices: CPAP Review of Systems 2 Review of Systems: All systems reviewed & are unremarkable except as noted in HPI & below Physical Exam 2 Physical Exam: General: 69yo obese female sitting up in bed, NAD HEENT : head atraumatic, normocephalic, mmm, trachea midline Resp; even/unlabored, slightly diminished in the bases, no wheezing/rales, on room air CV: RRR, no significant mrg, trace nonpitting edema b/l LE, pulses present, sensation intact GI: +BS, soft/NT : keen draining clear yellow urine MSK/Neuro: dressing c/d/i, ROSE MARIE with ~20cc bloody drainage, NVI, pulses present, nonfocal Psych: AOx3, cooperative with exam, fatigued Results & Data Results & Data Vital Signs (Past 12 Hours) Vital Signs Temp Pulse Pulse Resp BP Pulse Ox O2 Del Method 08/11/24 07:32 37.6 C H 96 H 18 112/63 94 Room Air 08/11/24 04:01 37.6 C H 102 H 20 94/58 L 95 Room Air 08/11/24 02:46 97 H 19 96 08/11/24 00:01 93 H 17 96 08/10/24 23:53 37.4 C 97 H 18 97/66 L 95 Room Air Laboratory Results 08/11/24 05:54 08/11/24 05:54 Diagnostic Findings Lumbar Spine X-Ray 08/10/24 09:05 FL lumbar spine 2-3V CLINICAL HISTORY: L3-L5 DECOMPRESSION AND FUSION COMPARISON STUDY: MRI 04/27/2024 FLUOROSCOPY TIME: 32.3 seconds FLUOROSCOPY IMAGES: 2 EXPOSURE DOSE: 61.6 mGy FINDINGS: Posterior interbody evette and screw fusion and discectomy noted at what is labeled the L3-L5 levels. Visualized hardware appears intact. No unexpected opaque foreign bodies identified. IMPRESSION: Fluoroscopic assistance as above. ACT 112: Negative or not required by law. Electronically signed by: Cedrick Martinez M.D. 08/10/2024 11:59 AM PG Care Time/CCT Total # of Minutes Spent Total Time Spent with Patient: Total time spent is greater than 50% in coordination of care (as documented) at patient's floor/unit and/or counseling patient: Coding Level of Care Code 01560 IN/OBS CONSULT LVL 3,45M Diagnoses Neurogenic claudication due to lumbar spinal stenosis M48.062 RITA on CPAP G47.33; Z99.89 Urinary urgency R39.15 Stress incontinence in female N39.3 CTS (carpal tunnel syndrome) G56.00
[2024-08-11] MEDS: NALTREXONE HCL 50 MG TAB PO SCH (20:27)
[2024-08-11] MEDS: ACETAMINOPHEN 500 MG TAB PO PRN (20:30)
[2024-08-12 06:27] LABS: Hematocrit (blood only) 29.7 % (37.0-47.0); Hemoglobin 9.9 g/dl (12.0-16.0); Mean Corpuscular Hemoglobin 31.2 pg (25.0-34.0); Mean Corpuscular Hgb Conc 33.3 g/dL (32.0-36.0); Mean Corpuscular Volume 93.7 fL (80.0-100.0); Mean Platelet Volume 9.4 fL (9.4-12.4); Platelet Count 259 K/uL (130-400); RDW Coefficient of Variation 12.9 % (11.5-14.5); RDW Standard Deviation 44.4 fL (36.4-46.3); Red Blood Count 3.17 M/uL (4.20-5.40); White Blood Count 11.09 K/ul (4.8-10.8)
[2024-08-12 06:34] LABS: BUN Creatinine Ratio 17.2 (10-20); Calcium 8.5 mg/dl (8.6-10.3); Creatinine Clr Calc Pharmacy 119.1 ml/min; Magnesium 1.9 mg/dl (1.7-2.4); Potassium 3.8 mmol/L (3.5-5.1)
[2024-08-12 06:49] LABS: Thyroid Stimulating Hormone 2.07 uIu/ml (0.300-4.500)
--- NOTE | 2024-08-12 08:50 | Hospitalist Progress Note ---
Date of Service August 12, 2024 Assessment & Plan (1) Neurogenic claudication due to lumbar spinal stenosis: Plan: s/p #1 lumbar decompression bilateral medial facetectomies and foraminotomies L2-L3, L3-L4 and L4-5. #2 posterior spinal fusion L3-L5. #3 placement posterior instrumentation L3-L5. #4 interbody fusion L3-L4 L4-L5 #5 placement of Spira 13 x 26 mm x 2 at L3-L4 and a 14 x 26 mm x 2 at L4-L5. #6 placement locally harvested morselized autograft posterior gutters. #7 placement infuse collagen sponge combined with Koros in the posterior lateral gutters and os design in the interbody space. #9 placement of versa wrap over the exposed dura. * Per OP report, "ordering 20 grams of Triple [place] Collagen Powder ([facility] A6010) to treat an incision wound that was caused by a spine procedure. The incision is approximately 2 cm(W) x 4 cm(L) into the joint (D) in size and is a full thickness wound. Triple [place] collagen comes in 1 gram packets so 20 packets were ordered. Given the size of the wound, with light to moderate exudate I chose to order a 20 day supply. The patient will be provided instructions for proper application of the collagen wound kit. The patient will be asked to apply the collagen powder daily and then cover it with sterile dressings dispensed" WBC elevation 11k. Suspect elevation from steroids/stress from surgery. Did have low grade temp 37.6C but suspect atelectasis/incentive spirometry ordered/encouraged and had not been using. CXR negative. Remains on Dexamethasone 6mg IV daily per primary service Hgb 13.3--> 10.3 --> 9.9 * Acute blood loss anemia from surgery suspected with EBL 1050cc and ROSE MARIE output 300cc thus far as well as aspect of dilution from IVF Pain control -- wants to hold off her naltrexone, uses for food cravings. Will place on hold Bowel regimen - last BM 08/10, +BS on exam and bowel regimen per primary Orthostatic VS slightly positive but good PO intake and not on any BP meds. Will monitor to see if needing any IVF but renal function stable CPAP HS, home machine brought in DVT proph per primary service PT/OT consults, plans for rehab. CM to follow. Patient wanting [facility], possible dc in AM if pain controlled and bed available. Monitor labs/exam on repeat. Please call with any questions/concerns. (2) RITA on CPAP: Plan: CPAP HS - brought in home machine last night with improvement in sleep/energy today (3) Urinary urgency: Plan: noted,on Myrbetriq and Vesicare at baseline keen in place following surgery, removed 08/10 remains on gemtessa/ditropan while inpatient and denies issues at present Monitor (4) Stress incontinence in female: Plan: as above (5) CTS (carpal tunnel syndrome): Plan: noted, TSH wnl Plan Thank you for allowing hospitalist service to participate in the care of Ms Acosta. Hospitalist service will follow along in AM. Please call with any questions/concerns. Admission and Anticipated Discharge Date Admission Date: August 10, 2024 Supervising Physician Co-Signing Physician Notes The patient was not seen by me. The chart was reviewed. Case discussed with ROXANN Spencer. Agree with assessment and plan Subjective Evaluated this morning, ambulating the halls with PT. Pain improved/controlled but having pain with positional changes as expected. Hgb drop slowed, not having significant lightheaded/dizziness with ambulating the halls and is not on any BP meds to hold. Discussed naltrexone resumed but may cause issues with pain control, she prefers to hold off on this for now. Passing gas but not much, no abdominal pain and reporting good appetite. +BS on exam. Keen removed yesterday, no issues. Planning for rehab, [facility], possibly tomorrow. No fever/chills, but did have low grade temp. Did endorse she hasn't been using the IS but encouraged use. Questions/concerns addressed at this time. Physical Exam 2 Physical Exam: General: 69yo obese female sitting up in recliner, just got back from ambulating with walker with PT, NAD, slightly fatigued appearing HEENT : head atraumatic, normocephalic, mmm, trachea midline Resp; even/unlabored, slightly diminished in the bases, no wheezing/rales, on room air CV: RRR, no significant mrg, trace nonpitting edema b/l LE, pulses present, sensation intact GI: +BS, soft/NT :no further keen MSK/Neuro: dressing c/d/i, ROSE MARIE with scant serosanguineous drainage, pulses present, NVI, strength equal bilaterally Psych: AOx3, cooperative with exam Results & Data Results & Data Vital Signs (Past 12 Hours) Vital Signs Temp Pulse Resp BP Pulse Ox O2 Del Method 08/12/24 07:20 37.6 C H 93 H 16 97/60 L 96 Room Air Laboratory Results 08/12/24 05:19 08/12/24 05:19 Diagnostic Findings Chest X-Ray 08/12/24 08:47 SINGLE VIEW CHEST CLINICAL HISTORY: Atelectasis FINDINGS: An AP, portable, upright chest radiograph is compared to study dated 07/13/2024. A hiatal hernia is noted. The cardiomediastinal silhouette is top normal for projection. Chronic interstitial thickening is similar to previous. There is minimal bibasilar atelectasis. Trace fluid is seen along the minor fissure. No pneumothorax is seen. The skeletal structures are osteopenic. The bony thorax is grossly intact. Degenerative change is noted in the spine. IMPRESSION: 1. No active disease in the chest. 2. Hiatal hernia. ACT 112: Negative or not required by law. Electronically signed by: Geovanni Zaman M.D. 08/12/2024 9:37 AM PG Care Time/CCT Total # of Minutes Spent Total Time Spent with Patient: Total time spent is greater than 50% in coordination of care (as documented) at patient's floor/unit and/or counseling patient: Coding Level of Care Code 07929 SUB INP/OBS CARE 2/35MIN Diagnoses Neurogenic claudication due to lumbar spinal stenosis M48.062 RITA on CPAP G47.33; Z99.89 Urinary urgency R39.15 Stress incontinence in female N39.3 CTS (carpal tunnel syndrome) G56.00
--- NOTE | 2024-08-12 09:38 | XRay Report ---
SINGLE VIEW CHEST CLINICAL HISTORY: Atelectasis FINDINGS: An AP, portable, upright chest radiograph is compared to study dated 07/13/2024. A hiatal he rnia is noted. The cardiomediastinal silhouette is top normal for projection. Chronic interstitial th ickening is similar to previous. There is minimal bibasilar atelectasis. Trace fluid is seen along th e minor fissure. No pneumothorax is seen. The skeletal structures are osteopenic. The bony thorax is grossly intact. Degenerative change is noted in the spine. IMPRESSION: 1. No active disease in the chest. 2. Hiatal hernia. ACT 112: Negative or not required by law. Electronically signed by: Geovanni Zaman M.D. 08/12/2024 9:37 AM
[2024-08-12] MEDS: MAGNESIUM HYDROXIDE SUSP 30 ML UDC PO PRN (09:59)
--- NOTE | 2024-08-12 11:17 | Orthopedic Progress Note ---
Date of Service August 12, 2024 Assessment & Plan (1) Neurogenic claudication due to lumbar spinal stenosis: Plan: At this time we will continue physical therapy monitor ROSE MARIE output anticipate discharge to rehab soon as tomorrow. Admission and Anticipated Discharge Date Admission Date: August 10, 2024 Subjective Back pain is controlled leg symptoms improved Physical Exam Physical Exam: Patient is initially at the bedside. She is comfortable. Distracted testing. Results & Data Vital Signs (Past 12 Hours) Vital Signs Temp Pulse Resp BP Pulse Ox O2 Del Method 08/12/24 07:20 37.6 C H 93 H 16 97/60 L 96 Room Air Queries Orthopedic Spine Acute Posthemorrhagic Anemia: Yes Obesity: Yes
[2024-08-12 20:03] VITALS: O2SAT 96
[2024-08-12 21:51] LABS: Appearance Urine Cloudy (Clear); Bacteria Urine Automated None Seen (None Seen); Bilirubin Urine Negative (Negative); Blood Urine Negative (Negative); Cast Urine Automated 0-2 /lpf (0-2); Color Urine Yellow; Glucose Urine UA Negative (Negative); Ketones Urine Trace (Negative); Leukocyte Esterase Urine Trace (Negative); Nitrite Urine Negative (Negative); Protein Urine Trace (Negative); RBC Urine Automated 0-2 /hpf (0-2); Specific Gravity Urine 1.024 (1.000-1.030); Urobilinogen Urine Negative (Negative); WBC Urine Automated 0-5 /hpf (0-5)
[2024-08-13 06:40] LABS: Basophils # (auto) 0.04 K/uL (0.00-0.20); Basophils % (auto) 0.4 %; Eosinophils # (auto) 0.06 K/uL (0.00-0.50); Eosinophils % (auto) 0.6 %; Hematocrit (blood only) 30.3 % (37.0-47.0); Hemoglobin 9.8 g/dl (12.0-16.0); Immature Granulocytes # (auto) 0.05 K/uL (0.01-0.20); Immature Granulocytes % (auto) 0.5 %; Lymphocytes # (auto) 2.17 K/uL (1.20-3.40); Lymphocytes % (auto) 20.1 %; Mean Corpuscular Hemoglobin 31.1 pg (25.0-34.0); Mean Corpuscular Hgb Conc 32.3 g/dL (32.0-36.0); Mean Corpuscular Volume 96.2 fL (80.0-100.0); Mean Platelet Volume 9.4 fL (9.4-12.4); Monocytes # (auto) 0.96 K/uL (0.11-0.59); Monocytes % (auto) 8.9 %; Neutrophils # (auto) 7.54 K/uL (1.40-6.50); Neutrophils % (auto) 69.5 %; Platelet Count 249 K/uL (130-400); RDW Coefficient of Variation 12.8 % (11.5-14.5); RDW Standard Deviation 45.1 fL (36.4-46.3); Red Blood Count 3.15 M/uL (4.20-5.40); White Blood Count 10.82 K/ul (4.8-10.8)
[2024-08-13 06:53] LABS: Albumin Globulin Ratio 1.1 (0.9-2); Albumin Level 3.2 gm/dl (3.4-5.0); BUN Creatinine Ratio 20.7 (10-20); Bilirubin,Total 0.5 mg/dl (0.2-1.0); Calcium 8.7 mg/dl (8.6-10.3); Creatinine Clr Calc Pharmacy 131.4 ml/min; Globulin 2.9 gm/dl (2.5-4.0); Magnesium 2.1 mg/dl (1.7-2.4); Total Protein 6.1 gm/dl (6.0-8.3)
[2024-08-13 07:33] VITALS: BP 100/63; PULSE 85; RESP 16; TEMP 98.8
--- NOTE | 2024-08-13 08:10 | Hospitalist Progress Note ---
Date of Service August 13, 2024 Assessment & Plan (1) Neurogenic claudication due to lumbar spinal stenosis: Plan: s/p #1 lumbar decompression bilateral medial facetectomies and foraminotomies L2-L3, L3-L4 and L4-5. #2 posterior spinal fusion L3-L5. #3 placement po sterior instrumentation L3-L5. #4 interbody fusion L3-L4 L4-L5 #5 placement of Spira 13 x 26 mm x 2 at L3-L4 and a 14 x 26 mm x 2 at L4-L5. #6 placement locally harvested morselized autograft posterior gutters. #7 placement infuse collagen sponge combined with Koros in the posterior lateral gutters and os design in the interbody space. #9 placement of versa wrap over the exposed dura. * Per OP report, "ordering 20 grams of Triple Sandoval Collagen Powder ([facility] [id number]) to treat an incision wound that was caused by a spine procedure. The incision is approximately 2 cm(W) x 4 cm(L) into the joint (D) in size and is a full thickness wound. Triple Sandoval collagen comes in 1 gram packets so 20 packets were ordered. Given the size of the wound, with light to moderate exudate I chose to order a 20 day supply. The patient will be provided instructions for proper application of the collagen wound kit. The patient will be asked to apply the collagen powder daily and then cover it with sterile dressings dispensed" WBC elevation suspected 2nd to steroids. Had been afebrile (exception one temp 38.3C on 08/12 but room warm, UA negative and no hypoxia/SOB and resolved on repeat without intervention). WBC improved on repeat and has not been given abx and remains on Dexamethasone 6mg IV daily per Dr Don Dexamethasone 6mg IV daily per primary service Hgb 13.3--> 10.3 --> 9.9 --> 9.8. --Acute blood loss anemia from surgery suspected with EBL 1050cc and ROSE MARIE output 300cc + 45cc + 15cc. ROSE MARIE removed this morning. Taking positions slowly but appearing stable/asymptomatic since resumption of home CPAP for sleep HS Pain control, bowel regimen per primary --> passing more gas, no BM yet. To continue bowel regimen at rehab. Held naltrexone yesterday to allow for better pain control and can be held at rehab. Would monitor for any repeat fevers at rehab and consideration to repeat urine collection if indicated given keen but had denied symptoms above baseline and no further temps/WBC trending down on steroids. Planning for [place] this afternoon Please call hospitalist service with any questions/concerns. (2) RITA on CPAP: Plan: CPAP HS , home machine in room (3) Urinary urgency: Plan: noted,on Myrbetriq and Vesicare at baseline keen in place following surgery, removed 08/10 remains on gemtessa/ditropan while inpatient and denies issues at present No infectious sx reported as above (4) Stress incontinence in female: Plan: as above (5) CTS (carpal tunnel syndrome): Plan: noted, TSH wnl Plan Thank you for allowing hospitalist service to participate in the care of Ms Acosta. Hospitalist service will sign off as plans for [place] Please call with any questions/concerns. Admission and Anticipated Discharge Date Admission Date: August 10, 2024 Supervising Physician Co-Signing Physician Notes The patient was not seen by me. The chart was reviewed. Case discussed with ROXANN Spencer. Agree with assessment and plan Subjective Eval this morning, appears improved. Urinating, no bacteria on UA. No dysuria or fever/chills reported. Pain controlled with ordered medications, plan to hold off naltrexone for now. No further temps recorded and no CP/SOB, not hypoxic. ROSE MARIE removed this morning. Passing more gas, no abdominal pain. Questions/concerns addressed at this time. Planning for dc to [place] this afternoon. Physical Exam Physical Exam: General: 69yo obese female sitting up in recliner, appears improved, NAD HEENT : head atraumatic, normocephalic, mmm, trachea midline Resp; even/unlabored, slightly diminished in the bases but no wheezing/rales, on room air 96% CV: RRR, no significant mrg, trace nonpitting edema b/l LE, pulses present, sensation intact GI: +BS, soft/NT :no further keen MSK/Neuro: dressing c/d/i, ROSE MARIE removed this morning, pulses present, NVI, strength equal bilaterally Psych: AOx3, cooperative with exam Results & Data Results & Data Vital Signs (Past 12 Hours) Vital Signs Temp Pulse Resp BP Pulse Ox O2 Del Method 08/13/24 07:32 37.1 C 85 16 100/63 96 Room Air 08/13/24 07:25 Room Air 08/12/24 21:20 Room Air Laboratory Results 08/13/24 08/12/24 Range/Units 05:40 21:40 WBC 10.82 H (4.8-10.8) K/ul RBC 3.15 L (4.20-5.40) M/uL Hgb 9.8 L (12.0-16.0) g/dl Hct 30.3 L (37.0-47.0) % MCV 96.2 (80.0-100.0) fL MCH 31.1 (25.0-34.0) pg MCHC 32.3 (32.0-36.0) g/dL RDW Std Deviation 45.1 (36.4-46.3) fL RDW Coeff of Joseph 12.8 (11.5-14.5) % Plt Count 249 (130-400) K/uL MPV 9.4 (9.4-12.4) fL Immature Gran % (Auto) 0.5 % Neut % (Auto) 69.5 % Lymph % (Auto) 20.1 % [place] % (Auto) 8.9 % Eos % (Auto) 0.6 % Baso % (Auto) 0.4 % Neut # (Auto) 7.54 H (1.40-6.50) K/uL Lymph # (Auto) 2.17 (1.20-3.40) K/uL [place] # (Auto) 0.96 H (0.11-0.59) K/uL Eos # (Auto) 0.06 (0.00-0.50) K/uL Baso # (Auto) 0.04 (0.00-0.20) K/uL Immature Gran # (Auto) 0.05 (0.01-0.20) K/uL Sodium 139 (136-145) mmol/L Potassium 4.0 (3.5-5.1) mmol/L Chloride 101 (98-107) mmol/L Carbon Dioxide 32 (21-32) mmol/L Anion Gap 6 (3-11) BUN 12 (6-23) mg/dl Creatinine 0.58 L (0.6-1.2) mg/dl Est Cr Clr Drug Dosing 131.4 ml/min eGFR 99.12 BUN/Creatinine Ratio 20.7 H (10-20) Glucose 117 H (70-99(Fasting)) mg/dl Calcium 8.7 (8.6-10.3) mg/dl Magnesium 2.1 (1.7-2.4) mg/dl Total Bilirubin 0.5 (0.2-1.0) mg/dl AST 19 (13-39) U/L ALT 12 (7-52) U/L Alkaline Phosphatase 55 (34-104) U/L Total Protein 6.1 (6.0-8.3) gm/dl Albumin 3.2 L (3.4-5.0) gm/dl Globulin 2.9 (2.5-4.0) gm/dl Albumin/Globulin Ratio 1.1 (0.9-2) Urine Color Yellow Urine Appearance Cloudy A (Clear) Urine pH 7.0 (4.5-7.5) Ur Specific [place] 1.024 (1.000-1.030) Urine Protein Trace H (Negative) Urine Glucose (UA) Negative (Negative) Urine Ketones Trace H (Negative) Urine Blood Negative (Negative) Urine Nitrite Negative (Negative) Urine Bilirubin Negative (Negative) Urine Urobilinogen Negative (Negative) Ur Leukocyte Esterase Trace H (Negative) Urine WBC (Auto) 0-5 (0-5) /hpf Urine RBC (Auto) 0-2 (0-2) /hpf U Hyaline Cast (Auto) 0-2 (0-2) /lpf U Epithel Cells (Auto) 6-10 H (0-2) /hpf Urine Bacteria (Auto) None Seen (None Seen) PG Care Time/CCT Total # of Minutes Spent Total Time Spent with Patient: Total time spent is greater than 50% in coordination of care (as documented) at patient's floor/unit and/or counseling patient: Coding Level of Care Code 56792 SUB INP/OBS CARE 2/35MIN Diagnoses Neurogenic claudication due to lumbar spinal stenosis M48.062 RITA on CPAP G47.33; Z99.89 Urinary urgency R39.15 Stress incontinence in female N39.3 CTS (carpal tunnel syndrome) G56.00
--- NOTE | 2024-08-13 08:32 | Discharge Summary ---
Date of Service August 13, 2024 Admission HPI Per Admitting Provider This is a 69-year-old female presents with chronic persistent back and bilateral leg pain after failing course of nonoperative care is here for surgical invention. Admission Exam (Per Admitting) Constitutional WD/WN, vitals as above Eyes normal visual reese by confrontation ENMT external ear and nose normal, oropharynx normal Neck normal visual inspection Respiratory normal respiratory effort Cardiovascular Extremities: normal capillary refill Gastrointestinal (Abdomen) Inspection/Auscultation: abdomen normal to inspection Musculoskeletal Spine: + pain with thoraco-lumbar ROM Extremities: extremities normal to inspection and strength 5/5 throughout Skin no rashes, warm and dry Neurologic normal touch/pain/proprioception and moves all extremities Psychiatric A+Ox3, euthymic affect Eye Contact: good eye contact Discharge Data Consultations 08/10/24 14:58 Consult Hospitalist Routine Procedures Performed Operation Date: 08/10/24 09:05 Actual Procedures p L3-L4, L4-L5 Decompression and Fusion, Spinal Cord Monitoring(Not Applicable) - [place], Hospital Course (1) Neurogenic claudication due to lumbar spinal stenosis: Angelika is being discharged to [facility] on postoperative day 3 status post L3-5 decompression and fusion. She has had an uneventful hospital course. Pain is controlled. She is ambulating 65 feet x 3 in physical therapy yesterday. H&H is morning are 9.8 and 30.3 respectively. She is passing flatus. No bowel movement. No other complaints. No abdominal pain. Plan ACTIVITY RECOMMENDATIONS: SELF CARE INSTRUCTIONS AFTER THORACIC/LUMBAR FUSIONS 1. You may walk to your tolerance. It is good exercise for your legs and back. Expect some back and intermittent leg aches and pains. 2. You may perform "counter-top" level activities (make a sandwich, nick with a project, etc.). 3. No bending or lifting of more than 10 pounds or back twisting of any nature (roll like a log when turning in bed). 4. You may ride in a car for 20-30 minutes at a time. No driving until after your first visit with your doctor. 5. Frequent changes of position and restricting sitting to 30 minutes at a time will help limit the amount of back spasms and stiffness you may experience. 6. You may discontinue the use of ambulatory aids (cane, crutches, etc.) once your strength and confidence allow. 7. You may retail merchandising manager the shower and let water strike your incision when you arrive home at least once daily. Do not take a tub bath, sit in a hot tub or go into a swimming pool until after your first recheck in the office. 8. You may resume previous diet. SPECIAL CARE INSTRUCTIONS: VERY IMPORTANT TO READ AND REVIEW A. Your surgical incision has been closed with a cosmetic suture under the skin that will dissolve in about 6 weeks. In 14 days, you can use a pair of clean scissors and cut the suture that is left outside of the skin at the ends of your incision. 1. The small skin tapes can be removed 7 days after surgery if they have not fallen off by that point. 2. You may keep the wound open to air as much as possible to promote healing after post-op day number 5 unless told otherwise by your doctor. 3. If you think the wound looks like it is becoming infected (redness or worsening drainage) and/or you are experiencing fever, chill or worsening back pain and muscle spasms, contact the office so that we may evaluate you as soon as possible. B. Complications are uncommon, but please contact us if you have any signs or symptoms of: 1. wound infection (fever higher than 102.5 degrees F, redness, separation of wound, drainage, or increasing pain from the incision) 2. blood clots in legs (pain, swelling, redness and warmth in legs) 3. urinary tract infection (fever higher than 102.5 degrees F, burning upon urination or increased frequency of urination) 4. nerve problems (inability to walk on your toes or heels, numbness, loss of bowel or bladder control) 5. any other symptoms that concern you C. Please call the office at if you have any concerns or questions about your operation or recovery. D. No smoking! Smoking drastically decreases the chance of a solid fusion. E. Do not take any anti-inflammatory medications (Indocin, Advil, Motrin, Aspirin, Naprosyn, etc.) as these may inhibit the chance of a solid fusion. Tylenol is okay to take for pain. MANAGING PAIN AFTER SPINAL SURGERY 1. Narcotic medication is intended for short-term use and will be provided for surgical pain. Surgical pain usually lasts for a period of 4-6 weeks. Narcotic medication includes Percocet, Vicodin, Darvocet, Tylenol #3 or Lortab. 2. Longer-term pain is more appropriately treated with non-narcotic medication such as Tylenol ES. 3. Muscle spasm is not appropriately treated with narcotics. Muscle relaxers such as Soma, Flexeril or Skelaxin can be used along with Tylenol ES. 4. Remember that we all live with some "aches and pains". This is not unusual or uncommon after an injury or as we get older. a. Back pain is expected and may include muscle spasms for 4 to 6 weeks after surgery. The pain should gradually improve. If the pain worsens for no apparent reason, please contact the office. b. Intermittent leg pain may also be experienced and should not be concerned about unless it worsens for no apparent reason. If so, please contact the office. 5. We will provide appropriate medication within the normal guidelines of their prescribed use. We will also be very cautious and aware of potential abuse and extended duration of patients' medication needs. a. Pain medications are for your comfort and to assist with sleep and rest so that the tissue can heal. They are not provided in order to return to normal activity and should not be used through the day. To do so or worsening pain at night can result from ongoing tissue damage and de velopment of tolerance to the prescribed medicine. 6. Please allow 2-3 days to process refills. Prescriptions will not be mailed but must be picked up at the office. FOLLOW UP VISIT: Keep your scheduled follow-up appointment. Any questions, please call the office at .
== END 2024-08-13 13:23 | DRG 427 ==
LOC: ASU 07:55 → 3E 11:59